=== PATIENT | male | born 1985 | race Caucasian/White ===

== ENCOUNTER 2020-12-04 16:28 | Inpatient (IN) | payer BC ==
[~2020-12-04] VITALS: Ht 170.2 cm; Wt 68.4 kg
[2020-12-04] MEDS ORDERED: traZODone 50mg tablet PO PRN (16:55)
[2020-12-04] MEDS ORDERED: magnesium hydroxide 30ml (MOM) UD suspension PO PRN (16:55)
[2020-12-04] MEDS ORDERED: LORazepam 1 MG tablet PO PRN (16:55)
[2020-12-04] MEDS ORDERED: loperamide 2mg capsule PO PRN (16:55)
[2020-12-04] MEDS ORDERED: mag hydrox/Alum hydrox/simeth 30ml oral suspension PO PRN (16:55)
[2020-12-04] MEDS ORDERED: acetaminophen 325mg tablet PO PRN ×2 (16:55)
[2020-12-04] MEDS ORDERED: OLANZapine 2.5MG tablet PO ONE (20:05)
[2020-12-04] MEDS ORDERED: ALBU18HF2 INH (20:13)
[2020-12-04] MEDS ORDERED: OLAN5TAB3 PO (22:43)
[2020-12-04] MEDS ORDERED: PIME30CR TOP (22:43)
[2020-12-04] MEDS ORDERED: DUPI300S (22:43)
[2020-12-04] MEDS ORDERED: FLAX100010 PO (22:43)
[2020-12-04] MEDS ORDERED: OMEG-79 PO (22:43)
[2020-12-04] MEDS ORDERED: MULT-1085 PO (22:43)
[2020-12-04] MEDS ORDERED: OMEP40CA13 PO (22:43)
[2020-12-04] MEDS ORDERED: DICL100G15 TOP (22:43)
[2020-12-04] MEDS ORDERED: FLUT1DIS20 INH (22:43)
[2020-12-04] MEDS ORDERED: CETI5TAB21 PO (22:43)
[2020-12-04] MEDS ORDERED: TRIA15CR62 TOP (22:43)
[2020-12-04] MEDS ORDERED: METH2.5T PO (22:43)
[2020-12-04] MEDS ORDERED: albuterol 2.5 MG/3 ML nebule NEB PRN (23:15)
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
[2020-12-05] MEDS: albuterol 2.5 MG/3 ML nebule NEB SCH ×4 (03:00→20:44)
[2020-12-05 07:55] VITALS: BP 108/63
[2020-12-05] MEDS ORDERED: FLAXSEED OIL PO SCH (08:00)
[2020-12-05 09:11] LABS: CHOL/HDL RATIO 2.8 (0.00-4.99); CHOLESTEROL 150 MG/DL (0-200); HDL CHOLESTEROL 54 MG/DL (35-60); LDL CHOLESTEROL 80 MG/DL (50-100); TRIGLYCERIDES 107 MG/DL (20-135)
[2020-12-05 09:14] LABS: HEMOGLOBIN A1C 5.1 % (4.5-6.2)
[2020-12-05] MEDS: OMEGA-3/DHA/EPA/FISH OIL 1 EACH CAPSULE.DR PO SCH (09:41)
[2020-12-05] MEDS: multivitamins, therapeutics tablet PO SCH (09:41)
[2020-12-05] MEDS: pantoprazole 40mg Tablet.DR PO SCH (09:42)
[2020-12-05] MEDS: cetirizine 10mg tablet PO SCH (09:42)
--- NOTE | 2020-12-05 09:42 | NUR ---
Pt with the Dr. Bowen during morning medication pass. Unable to pass medications between 8-9 am.
[2020-12-05] MEDS: budesonide 0.5mg/2ml UD nebule IH SCH ×2 (09:55→20:44)
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
[2020-12-05 20:00] VITALS: BP 115/61
[2020-12-05] MEDS: PALIPERIDONE 3 MG TAB.ER.24 PO SCH (20:32)
[2020-12-05] MEDS: OLANZapine 2.5MG tablet PO SCH (20:32)
[2020-12-05] MEDS ORDERED: OLANZAPINE 5 MG TABLET PO SCH (21:00)
[2020-12-05] MEDS: triamcinolone acet 0.1% cream 15gm TP SCH (21:44)
[2020-12-06] MEDS: albuterol 2.5 MG/3 ML nebule NEB SCH ×4 (02:34→21:00)
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
[2020-12-06 07:38] VITALS: BP 111/65
[2020-12-06] MEDS: cetirizine 10mg tablet PO SCH (07:59)
[2020-12-06] MEDS: pantoprazole 40mg Tablet.DR PO SCH (07:59)
[2020-12-06] MEDS: OMEGA-3/DHA/EPA/FISH OIL 1 EACH CAPSULE.DR PO SCH (07:59)
[2020-12-06] MEDS: multivitamins, therapeutics tablet PO SCH (07:59)
[2020-12-06] MEDS: triamcinolone acet 0.1% cream 15gm TP SCH ×2 (08:00→20:24)
[2020-12-06] MEDS: montelukast 10mg tablet PO SCH (08:00)
[2020-12-06] MEDS: budesonide 0.5mg/2ml UD nebule IH SCH ×2 (10:40→21:00)
--- NOTE | 2020-12-06 12:27 | NUR ---
Psychosocial Assessment Met with Pt. to complete Psychosocial this morning. Pt.reported that he was driving to [place] to where his girl friend is staying in [facility]. She is not aware that he is coming (she is not his girlfriend but is a casual acquaintance from his [employer] club) but he reported they are communicating "psychically". He displayed delusional thought processes and was bizarre delusions. He reported he hasn't been seeing a therapist or Psychiatrist for over a year now. And reported he had a prior dx of Schizophrenia.
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
[2020-12-06 20:02] VITALS: BP 110/65
[2020-12-06] MEDS: PALIPERIDONE 3 MG TAB.ER.24 PO SCH (20:24)
[2020-12-06] MEDS: OLANZapine 2.5MG tablet PO SCH (20:25)
[2020-12-07] MEDS: albuterol 2.5 MG/3 ML nebule NEB SCH ×2 (02:59→08:15)
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
[2020-12-07] MEDS: multivitamins, therapeutics tablet PO SCH (08:05)
[2020-12-07] MEDS: OMEGA-3/DHA/EPA/FISH OIL 1 EACH CAPSULE.DR PO SCH (08:05)
[2020-12-07] MEDS: pantoprazole 40mg Tablet.DR PO SCH (08:05)
[2020-12-07] MEDS: cetirizine 10mg tablet PO SCH (08:05)
[2020-12-07] MEDS: montelukast 10mg tablet PO SCH (08:05)
[2020-12-07] MEDS: triamcinolone acet 0.1% cream 15gm TP SCH ×2 (08:13→20:29)
[2020-12-07] MEDS: budesonide 0.5mg/2ml UD nebule IH SCH (08:15)
[2020-12-07] MEDS ORDERED: albuterol 2.5 MG/3 ML nebule NEB PRN (10:30)
--- NOTE | 2020-12-07 14:37 | NUR ---
Met with Pt. for a 1:1. Pt. was receptive to talking. He was alert and oriented X 4. His thought process was linear and continues to display some delusional thought. He is disappointed that his stay will be extended and talked about how he would like to leave [facility]. He reported that reading Dr. Bowen's report was sobering and made him realize that he has been engaging in "asinine behaviors" over the past four months. Pt. reported that he feels that this his stay here will possibly be a pivot point because he realizes this time of his life is an important time not to be following others. He described the others as the people he communicates with telepathically. This Health Unit Clerk gave him an article about [employer] that addressed coping skills. He was interested in reading it and we made an appt. for tomorrow to talk about it.
--- NOTE | 2020-12-07 15:54 | NUR ---
Spoke to Anil with [facility] to inquire about Erich's car. He reported [employer] picked him up and suggested Erich call [employer] (ph# [phone]) to find out where his car was towed. Gave Erich the phone # and suggested he call. Informed him his car was likely towed and he may have to pay to get it out of impound. He thanked sheet writer for the info. GEOFF Piedra
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
[2020-12-07 20:00] VITALS: BP 132/67
[2020-12-07] MEDS: PALIPERIDONE 3 MG TAB.ER.24 PO SCH (20:29)
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
[2020-12-08] MEDS: cetirizine 10mg tablet PO SCH (07:22)
[2020-12-08] MEDS: OMEGA-3/DHA/EPA/FISH OIL 1 EACH CAPSULE.DR PO SCH (07:22)
[2020-12-08] MEDS: montelukast 10mg tablet PO SCH (07:22)
[2020-12-08] MEDS: pantoprazole 40mg Tablet.DR PO SCH (07:22)
[2020-12-08] MEDS: multivitamins, therapeutics tablet PO SCH (07:22)
[2020-12-08] MEDS: triamcinolone acet 0.1% cream 15gm TP SCH ×2 (08:00→20:00)
[2020-12-08 08:36] VITALS: BP 105/67
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
[2020-12-08 20:01] VITALS: BP 103/69
[2020-12-08] MEDS: PALIPERIDONE 3 MG TAB.ER.24 PO SCH (20:17)
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
[2020-12-09] MEDS: pantoprazole 40mg Tablet.DR PO SCH (07:30)
[2020-12-09 08:00] VITALS: BP 127/79
[2020-12-09] MEDS: triamcinolone acet 0.1% cream 15gm TP SCH ×2 (08:00→20:22)
[2020-12-09] MEDS: cetirizine 10mg tablet PO SCH (08:56)
[2020-12-09] MEDS: montelukast 10mg tablet PO SCH (08:56)
[2020-12-09] MEDS: OMEGA-3/DHA/EPA/FISH OIL 1 EACH CAPSULE.DR PO SCH (08:56)
[2020-12-09] MEDS: multivitamins, therapeutics tablet PO SCH (08:56)
--- NOTE | 2020-12-09 09:21 | NUR ---
Met with Pt. today for 1:1 to follow up with him regarding the article he read on [facility]. Pt. had also requested to speak to SS re his discharge plan which is what he was preoccupied with during our visit. Pt reported he has requested a 5250 hearing which will be held at 3:30 today as he feels he is in great shape to leave at this point. His plans are not completely clear at this time as he is in the process of locating his car which he was able to accomplish while this Tractor Driver Teamster sat with him while he made some calls. He found out it was [place] [address] near one of the [facility] exits. He struggled to figure out how he could get to [facility] though he does report having funds in his bank acct. He processed that a disabilities services officer he met in [facility] the night he was detained could maybe come and pick him up and take him there. His thinking still appears to display disorganized thoughts though he appears to be improving daily. He continues to fixate on this "girl friend" that he wants to get back to [place] to so he can ask her out on a date. His story appears to change when speaking with different people as to what his plans are after discharge, whether he will drive home to [place] or to continue his trip to [facility]. When asked if he plans to contact his parents for support/ride, he stated, "I plan to contact them when I return to my apartment." He made statements to the affect that they know telepathically what is going on with him. Sury Wells LCSW
--- NOTE | 2020-12-09 10:01 | NUR ---
Initial: Pt admit with schizoaffective disorder. Currently on a regular diet documented with mostly 100% PO intake meeting estimated nutrient needs. Pt participating in HS snacks at times per RN notes. LBM 12/07. No documented edema or wounds. No nutrition diagnosis at this time. Will continue to follow. Recommendations: 1) Continue regular diet 2) Bowel care per rx 3) Weekly scaled weights Addendum: 12/09/20 at [address] Amended: Links added.
[2020-12-09] MEDS ORDERED: paliperidone palmitate inj 234 MG/1.5 ML SYRINGE IM ONE (12:15)
--- NOTE | 2020-12-09 12:17 | NUR ---
PROBABLE CAUSE HEARING Patients Name: Erich Berg Admission Date: 12/04/2020 Date of 5150: 12/03/20 Written by: FROYLAN Criteria: GD Summary of Facts: Subject identified himself as being schizophrenic, relating that he was in route to his girlfriend who he has not actually asked out yet. Subject displayed poor hygiene, with rotting food in his cooler, which subject stated he was going to eat on his way to [place]. Also talked of eating own feces to sustain himself. Utox: +CBD Date of 5250: 12/07/2020 Written by: Dr. Bowen Criteria: GD Summary of Facts: This patient was admitted to this unit for bizarre behaviors on the highway, notably plan to drive to [place] to his girl friend with whom he communicates telepathically, offering her and her family a feast of concoction, he has made from his feces, drinking motor oil because he could not find a place to dispose of it. Currently the patient continues to have a plan to go to [place] to see this person, he communicates via telepathy. Just last night he masturbated, believing that he is having sexual intercourse with her, continues to believe that his excreta would be useful to lower beings, perhaps drinking motor oil was appropriate and he would give up his job and medication to meet this person in [place]. Diagnosis: Schizoaffective disorder, depressed type Behavior during 72 HRS: Erich has shown vast improvement over the past several days, however he is still experiencing some symptoms that make him a risk to [place]. Things such as still being convinced this girl he was going to see is his girlfriend when she is not. He is saying he is going to drive to [facility] and hike with this girl. These perseverations/delusions put him at risk of harm or arrest. Continues to have AVH of his family members talking. FOOD: 100% SLEEPIN ADLS: Ind CUSTODIAL: Has own home MEDICATION DOSAGE FREQUENCY DURATION Invgega sustenna 235 mg today Invega 6 mg po q hs
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
[2020-12-09 19:28] VITALS: BP 113/59
[2020-12-09] MEDS: PALIPERIDONE 3 MG TAB.ER.24 PO SCH (20:13)
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
[2020-12-10] MEDS: cetirizine 10mg tablet PO SCH (07:56)
[2020-12-10] MEDS: multivitamins, therapeutics tablet PO SCH (07:56)
[2020-12-10] MEDS: pantoprazole 40mg Tablet.DR PO SCH (07:56)
[2020-12-10] MEDS: montelukast 10mg tablet PO SCH (07:56)
[2020-12-10] MEDS: OMEGA-3/DHA/EPA/FISH OIL 1 EACH CAPSULE.DR PO SCH (07:56)
[2020-12-10 08:00] VITALS: BP 110/61
[2020-12-10] MEDS: triamcinolone acet 0.1% cream 15gm TP SCH ×2 (08:00→20:30)
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
--- NOTE | 2020-12-10 15:08 | NUR ---
DISCHARGE PLANNING Spoke to [facility] and they will assist with transport to Erich's car. [employer] [place] Attendant will call on Sunday to arrange for transportation. Made his follow up appointment with his PCP at [facility]. Erich has an apartment to return to in [place]. He reported he has money for gas for the drive back to [place]. GEOFF Piedra
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
[2020-12-10 20:00] VITALS: BP 107/59
[2020-12-10] MEDS: PALIPERIDONE 3 MG TAB.ER.24 PO SCH (20:27)
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
[2020-12-11] MEDS: OMEGA-3/DHA/EPA/FISH OIL 1 EACH CAPSULE.DR PO SCH (07:22)
[2020-12-11] MEDS: cetirizine 10mg tablet PO SCH (07:22)
[2020-12-11] MEDS: pantoprazole 40mg Tablet.DR PO SCH (07:22)
[2020-12-11] MEDS: multivitamins, therapeutics tablet PO SCH (07:23)
[2020-12-11] MEDS: montelukast 10mg tablet PO SCH (07:23)
[2020-12-11] MEDS: triamcinolone acet 0.1% cream 15gm TP SCH ×2 (07:23→20:14)
[2020-12-11 08:00] VITALS: BP 105/57
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
[2020-12-11 20:00] VITALS: BP 103/65
[2020-12-11] MEDS: PALIPERIDONE 3 MG TAB.ER.24 PO SCH (20:03)
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
[2020-12-12 08:00] VITALS: BP 104/62
[2020-12-12] MEDS: triamcinolone acet 0.1% cream 15gm TP SCH ×2 (08:05→20:00)
[2020-12-12] MEDS: cetirizine 10mg tablet PO SCH (08:06)
[2020-12-12] MEDS: multivitamins, therapeutics tablet PO SCH (08:06)
[2020-12-12] MEDS: pantoprazole 40mg Tablet.DR PO SCH (08:06)
[2020-12-12] MEDS: montelukast 10mg tablet PO SCH (08:06)
[2020-12-12] MEDS: OMEGA-3/DHA/EPA/FISH OIL 1 EACH CAPSULE.DR PO SCH (08:06)
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
[2020-12-12 20:00] VITALS: BP 106/87
[2020-12-12] MEDS: PALIPERIDONE 3 MG TAB.ER.24 PO SCH (20:17)
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
[2020-12-13] MEDS: OMEGA-3/DHA/EPA/FISH OIL 1 EACH CAPSULE.DR PO SCH (07:17)
[2020-12-13] MEDS: cetirizine 10mg tablet PO SCH (07:17)
[2020-12-13] MEDS: pantoprazole 40mg Tablet.DR PO SCH (07:17)
[2020-12-13] MEDS: multivitamins, therapeutics tablet PO SCH (07:17)
[2020-12-13] MEDS: montelukast 10mg tablet PO SCH (07:17)
[2020-12-13] MEDS: triamcinolone acet 0.1% cream 15gm TP SCH ×2 (07:17→20:15)
[2020-12-13 08:00] VITALS: BP 137/66
[2020-12-13] MEDS ORDERED: paliperidone palmitate 156 mg/ml inj.**IM only IM ONE (10:00)
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
[2020-12-13] MEDS ORDERED: CETI5TAB21 PO (12:48)
[2020-12-13] MEDS ORDERED: ALBU18HF2 INH (12:48)
[2020-12-13] MEDS ORDERED: PANT40TA54 PO (12:48)
[2020-12-13] MEDS ORDERED: FLUT1DIS20 INH (12:48)
[2020-12-13] MEDS ORDERED: PALI6TAB6 PO (12:48)
[2020-12-13] MEDS ORDERED: MONT10TA32 PO (12:48)
[2020-12-13] MEDS ORDERED: PALI156D IM (12:48)
[2020-12-13] MEDS ORDERED: TRAZ-251 PO (12:48)
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
[2020-12-13] MEDS: PALIPERIDONE 3 MG TAB.ER.24 PO SCH (20:15)
[2020-12-13 20:53] VITALS: BP 107/68
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
[2020-12-14] MEDS: triamcinolone acet 0.1% cream 15gm TP SCH (07:50)
[2020-12-14] MEDS: cetirizine 10mg tablet PO SCH (07:51)
[2020-12-14] MEDS: pantoprazole 40mg Tablet.DR PO SCH (07:51)
[2020-12-14] MEDS: montelukast 10mg tablet PO SCH (07:51)
[2020-12-14] MEDS: multivitamins, therapeutics tablet PO SCH (07:51)
[2020-12-14] MEDS: OMEGA-3/DHA/EPA/FISH OIL 1 EACH CAPSULE.DR PO SCH (07:51)
[2020-12-14 07:59] VITALS: BP 103/65
== END 2020-12-14 09:16 | disposition home or self-care (01) | DRG 885 ==
LOC: ADULT MH 16:34
PROVIDERS: ADMIT Psychiatry & Neurology Psychiatry; ATTEND Psychiatry & Neurology Psychiatry
DX: F25.1 Schizoaffective disorder, depressive type (principal); J45.909 Unspecified asthma, uncomplicated; K21.9 Gastro-esophageal reflux disease without esophagitis; Z79.899 Other long term (current) drug therapy; Z82.49 Family history of ischemic heart disease and other diseases of the circulatory system
CPT/HCPCS: 36415; 80061; 83036; 87081; 94760